=== PATIENT | female | born 1980 | race Caucasian/White ===

== ENCOUNTER 2018-10-08 02:03 | Inpatient (IN) | payer BC ==
[2018-10-08] MEDS ORDERED: fentaNYL 100 MCG/2 ML SDV IVPUSH ONE (02:58)
[2018-10-08] MEDS ORDERED: ePHEDrine 50 MG/ML SDV ONE (03:02)
[2018-10-08] MEDS ORDERED: Ropivacaine 100 ML ONE (03:14)
[2018-10-08] MEDS ORDERED: Oxytocin 10 Units/1 ML SDV ONE ×2 (03:40→03:58)
[2018-10-08] MEDS ORDERED: Oxytocin 10 Units/1 ML SDV IM ONE (03:45)
[2018-10-08] MEDS ORDERED: Lidocaine 1% 50 ML MDV ONE (03:49)
--- NOTE | 2018-10-08 04:12 | ANES ---
DATE OF SERVICE: 10/08/2018 LABOR EPIDURAL NOTE I was called this morning for a lady in active labor requesting a labor epidural. I was at the bedside and interviewed the patient. The patient had no significant history of bleeding or easily bruising. Normal . The platelet count was 191. Risks and benefits were reviewed with the patient and the . The patient has had labor epidurals before. The patient verbalized her understandings of the risks and benefits and wishes to proceed with the labor epidural right now. The patient was then sat at the edge of the bed. Betadine prep x3 to the lumbar region was done. Sterile drape was placed. 1% lidocaine skin wheal and deep was done. A 17-gauge Touhy needle was inserted at approximately the L4-L5 position. Loss of resistance was achieved at approximately 4 cm. Catheter was easily threaded. Touhy needle was withdrawn and the catheter was pulled back to approximately 11 cm and secured. Three mL test dose was done. Catheter was then fully secured. The patient was then laid in the supine position with left uterine displacement. The patient showed no signs of local anesthetic toxicity. She was still able to move her legs easily and heart rate maintained in the low 100s. Shortly after lying the patient down, the patient was feeling like she needs to push and baby was delivered shortly after that. So, I was able to only get 7 mL of 0.2% ropivacaine bolus via the epidural. No drip was started. The patient's blood pressure is maintained throughout. Please refer to the nurse's notes for vital signs. Labor and Delivery will pull the epidural at their convenience. Rohan Degroot CRNA /[id number]
[2018-10-08] MEDS ORDERED: Sodium Chloride 0.9% 10 ML Syringe FLUSH PRN (04:55)
[2018-10-08] MEDS ORDERED: Acetaminophen 325 MG Tab, 50 Tab Bulk Bottle PO PRN (05:09)
[2018-10-08] MEDS ORDERED: Ibuprofen 200 MG Tab, 24 Tab Bulk Bottle PO PRN (05:09)
[2018-10-08] MEDS ORDERED: Witch Hazel Medicated Pads 100/Jar TOP PRN (05:09)
[2018-10-08] MEDS ORDERED: Lanolin 100% Cream 40 GM Tube TOP PRN (05:09)
[2018-10-08] MEDS ORDERED: Benzocaine 20% Top Spray 56 GM Bottle TOP PRN (05:09)
--- NOTE | 2018-10-08 05:31 | PCM.LDHP ---
L&D History of Present Illness - General Date of Service: 10/08/18 Admit Problem/Dx: Patient Status Order with Admit Dx/Problem 10/08/18 04:56 Patient Status [ADT] Routine 10/08/18 05:09 Patient Status [ADT] Routine Admission Diagnosis/Problem Admission Diagnosis/Problem Vaginal delivery Source of Information: Patient History Limitations: Reports: No Limitations - History of Present Illness Pain Score: 10 - Related Data Allergies/Adverse Reactions: Allergies Allergy/AdvReac Type Severity Reaction Status Date / Time No Known Allergies Allergy Verified 01/16/15 21:51 Home Medications: Home Meds Clindamycin Phosphate 1 ml TOP DAILY 01/25/15 [History] Pnv with Ca,No.74/Iron/Fa [ Low Iron Tablet] 1 tab PO DAILY 01/25/15 [ History] Sertraline [Zoloft] 50 mg PO BEDTIME #30 tab 03/18/15 [Rx] Past Medical History Other HEENT History: RRP, Other Genitourinary History: 2-3 weeks ago [employer] History: Reports: : 5 Para: 3 LMP (Approximate): Other (See Below) (PHILL-10/21/2018) - Infectious Disease History Infectious Disease History: Reports: Chicken Pox Social & Family History - Family History Family Medical History: Noncontributory - Tobacco Use Smoking Status *Q: Never Smoker Second Hand Smoke Exposure: No - Caffeine Use Caffeine Use: Reports: None Other Caffeine Use: 1 cup daily - Recreational Drug Use Recreational Drug Use: No H&P Review of Systems - Review of Systems: Review Of Systems: See Below General: Reports: No Symptoms HEENT: Reports: No Symptoms Pulmonary: Reports: No Symptoms Cardiovascular: Reports: No Symptoms Gastrointestinal: Reports: No Symptoms Genitourinary: Reports: No Symptoms Musculoskeletal: Reports: No Symptoms Skin: Reports: No Symptoms Psychiatric: Reports: No Symptoms Neurological: Reports: No Symptoms Hematologic/Lymphatic: Reports: No Symptoms Immunologic: Reports: No Symptoms L&D Exam - Exam Exam: See Below - Vital Signs Vital Signs: Last Vital Signs Temp 36.6 C 10/08/18 02:30 Pulse 74 10/08/18 02:30 Resp 18 10/08/18 02:30 BP 137/69 10/08/18 02:30 Pulse Ox 69 L 10/08/18 02:30 Weight: 92.986 kg - OB Specific Movement: Active Heart Tones: Present Heart Rate (FHR) Variability: Moderate (6-25 bmp) Presentation: Vertex - Patient Data Lab Results Last 24 hrs: Laboratory Results - last 24 hr 10/08/18 10/08/18 10/08/18 Range/Units 02:30 02:31 02:31 WBC (4.5-11.0) K/uL RBC (3.30-5.50) M/uL Hgb (12.0-15.0) g/dL Hct (36.0-48.0) % MCV (80-98) fL MCH (27-31) pg MCHC (32-36) % Plt Count (150-400) K/uL Urine Color Yellow Urine Appearance Slightly cloudy Urine pH 5.0 (4.5-8.0) Ur Specific [place] 1.020 (1.008-1.030) Urine Protein Negative (NEGATIVE) mg/dL Urine Glucose (UA) Normal (NEGATIVE) mg/dL Urine Ketones Negative (NEGATIVE) mg/dL Urine Occult Blood Large (NEGATIVE) Urine Nitrite Negative (NEGATIVE) Urine Bilirubin Negative (NEGATIVE) Urine Urobilinogen Normal (NORMAL) mg/dL Ur Leukocyte Esterase Negative (NEGATIVE) Urine RBC 10-20 H (0-5) Urine WBC 0-5 (0-5) Ur Epithelial Cells Many Amorphous Sediment Not seen Urine Bacteria Few Urine Mucus Not seen Membrane Rupture Positive H (NEGATIVE) Urine Opiates Screen Negative (NEGATIVE) Ur Oxycodone Screen Negative (NEGATIVE) Urine Methadone Screen Negative (NEGATIVE) Ur Propoxyphene Screen Negative (NEGATIVE) Ur Barbiturates Screen Negative (NEGATIVE) Ur Tricyclics Screen Negative (NEGATIVE) Ur Phencyclidine Scrn Negative (NEGATIVE) Ur Amphetamine Screen Negative (NEGATIVE) U Methamphetamines Scrn Negative (NEGATIVE) Urine MDMA Screen Negative (NEGATIVE) U Benzodiazepines Scrn Negative (NEGATIVE) U Cocaine Metab Screen Negative (NEGATIVE) U Marijuana (THC) Screen Negative (NEGATIVE) 10/08/18 Range/Units 03:00 WBC 12.7 H (4.5-11.0) K/uL RBC 4.11 (3.30-5.50) M/uL Hgb 11.4 L (12.0-15.0) g/dL Hct 35.7 L (36.0-48.0) % MCV 87 (80-98) fL MCH 28 (27-31) pg MCHC 32 (32-36) % Plt Count 191 (150-400) K/uL Urine Color Urine Appearance Urine pH (4.5-8.0) Ur Specific [place] (1.008-1.030) Urine Protein (NEGATIVE) mg/dL Urine Glucose (UA) (NEGATIVE) mg/dL Urine Ketones (NEGATIVE) mg/dL Urine Occult Blood (NEGATIVE) Urine Nitrite (NEGATIVE) Urine Bilirubin (NEGATIVE) Urine Urobilinogen (NORMAL) mg/dL Ur Leukocyte Esterase (NEGATIVE) Urine RBC (0-5) Urine WBC (0-5) Ur Epithelial Cells Amorphous Sediment Urine Bacteria Urine Mucus Membrane Rupture (NEGATIVE) Urine Opiates Screen (NEGATIVE) Ur Oxycodone Screen (NEGATIVE) Urine Methadone Screen (NEGATIVE) Ur Propoxyphene Screen (NEGATIVE) Ur Barbiturates Screen (NEGATIVE) Ur Tricyclics Screen (NEGATIVE) Ur Phencyclidine Scrn (NEGATIVE) Ur Amphetamine Screen (NEGATIVE) U Methamphetamines Scrn (NEGATIVE) Urine MDMA Screen (NEGATIVE) U Benzodiazepines Scrn (NEGATIVE) U Cocaine Metab Screen (NEGATIVE) U Marijuana (THC) Screen (NEGATIVE) Result Diagrams: 10/08/18 03:00 - Problem List (1) SNOMED Code(s): 62229714 ICD Code: Z34.90 - ENCNTR FOR SUPRVSN OF NORMAL , UNSP, UNSP TRIMESTER Status: Acute Current Visit: Yes Qualifiers: Weeks of gestation: 38 weeks Qualified Code(s): Z3A.38 - 38 weeks gestation of (2) Labor established SNOMED Code(s): 68558393 ICD Code: PZG0142 - Status: Acute Current Visit: Yes Problem List Initiated/Reviewed/Updated: Yes Orders Last 24hrs: Active Orders 24 hr Category Date Time Status Patient Status [ADT] Routine ADT 10/08/18 04:56 Active Patient Status [ADT] Routine ADT 10/08/18 05:09 Active Ambulate [RC] PER UNIT ROUTINE Care 10/08/18 05:02 Active Antiembolic Devices [RC] .Routine Care 10/08/18 05:04 Active Communication Order [RC] ASDIRECTED Care 10/08/18 04:56 Active Heart Tones [RC] PER UNIT ROUTINE Care 10/08/18 04:56 Active Non Stress Test [RC] Click to Edit Care 10/08/18 04:56 Active May Shower [RC] ASDIRECTED Care 10/08/18 04:55 Active Notify Provider Vital Signs [RC] PRN Care 10/08/18 02:10 Active Notify Provider [RC] PRN Care 10/08/18 04:56 Active PCEA Epidural [RC] ASDIRECTED Care 10/08/18 03:00 Active PCEA Epidural [RC] ASDIRECTED Care 10/08/18 03:00 Active Up ad Dora [RC] ASDIRECTED Care 10/08/18 04:55 Active VTE/DVT Education [RC] Click to Edit Care 10/08/18 05:04 Active Vital Signs [RC] PER UNIT ROUTINE Care 10/08/18 04:56 Active Vital Signs [RC] PFP Care 10/08/18 05:09 Active Regular Diet [DIET] Diet 10/08/18 Breakfast Active CBC WITH AUTO DIFF [HEME] Routine Lab 10/08/18 05:09 Ordered Acetaminophen [Tylenol Bulk Bottle] Med 10/08/18 05:09 Active 325 - 650 mg PO Q4H PRN Benzocaine [Uugj-J-Chziaxz 20% [place]] Med 10/08/18 05:09 Ordered See Dose Instructions TOP Q4H PRN Ibuprofen [Motrin Bulk Bottle] Med 10/08/18 05:09 Ordered 600 mg PO Q6H PRN Lanolin [Lansinoh HPA] Med 10/08/18 05:09 Ordered 40 gm TOP ASDIRECTED PRN Sodium Chloride 0.9% [Saline Flush] Med 10/08/18 04:55 Ordered 10 ml FLUSH ASDIRECTED PRN [place] [Tucks] Med 10/08/18 05:09 Ordered 1 pad TOP ASDIRECTED PRN Assess Lochia [WOMSER] Per Unit Routine Oth 10/08/18 05:09 Ordered Assess Uterine Involution [WOMSER] Per Unit Routine Oth 10/08/18 05:09 Ordered DVT/VTE Prophylaxis Reflex [OM.PC] Routine Oth 10/08/18 05:02 Ordered Epidural Catheter Management [OM.PC] Stat Oth 10/08/18 02:59 Ordered Saline Lock Insert [OM.PC] Routine Oth 10/08/18 04:56 Ordered Resuscitation Status Routine Resus Stat 10/08/18 04:55 Ordered Medication Orders Acetaminophen (Tylenol Bulk Bottle) 325 - 650 mg PO Q4H PRN PRN Reason: Pain Benzocaine (Fcuo-F-Bynioxk 20% [place]) 0 gm TOP Q4H PRN PRN Reason: Perineal Comfort Measure Emollient Ointment (Lansinoh Hpa) 40 gm TOP ASDIRECTED PRN PRN Reason: Sore Nipples Ibuprofen (Motrin Bulk Bottle) 600 mg PO Q6H PRN PRN Reason: Pain Sodium Chloride (Saline Flush) 10 ml FLUSH ASDIRECTED PRN PRN Reason: Keep Vein Open [place] (Tucks) 1 pad TOP ASDIRECTED PRN PRN Reason: Hemorrhoids Assessment/Plan Comment:: 10/08/2018 38 yo here at 38 1/7 gestational weeks came in in active labor SVE-/0 FHTs-category one Contractions regular Plan- Admit to labor and delivery Patient pain control per her request May have an epidural Plan and anticipate a vaginal delivery
--- NOTE | 2018-10-08 05:47 | PCM.DEL ---
L & D Note - General Info Date of Service: 10/08/18 Mother's Due Date: 10/21/18 - Delivery Note Labor: Spontaneous Delivery Outcome: Livebirth Infant Delivery Method: Spontaneous Vaginal Delivery-Single Infant Delivery Mode: Spontaneous Presentation: Vertex Nuchal Cord: None Amniotic Fluid Description: Clear Episiotomy Type: None Laceration: None Placenta: Intact, Spontaneous Cord: 3 Vessels Estimated Blood Loss: 200 Resuscitation Needed: No [place]: Bulb Syringe, Stimulated, Warmed, [place] Used Provider: Julia Ascencio Score 1 min: 5 Score 5 min: 8 Second Stage Interventions: Reports: Other (see below) (precipitous delivery) Delivery Comments (Free Text/Narrative):: 10/08/2018 38 yo delivered a viable male at 0335 on 10/08/2018 at 38 1/7 gestational weeks over an intact perineum in vertex position precipitously. Nurse Campbell Vo delivered the as provider walked into the room, Nurse stated there had been no nuchal cord. Cord was then double clamped and cut so infant could be brought to warmer for initial assessment. was slightly stunned, was dried, stimulated, warmed, bulb suctioned, and blow by was given as began to come around and pink in color and cry vigorously. APGARS-5/8 , weight-7lbs 7oz, length-20 inches. Mother was slightly anxious and had a hard time relaxing, IM pitocin was given since IV site was no long functioning. Bed was then broken down to assist with placenta. Patient then relaxed and placenta expressed spontaneously and intact. Three vessel cord noted, EBL- 200ml. No lacerations noted of vagina, perineum, rectum, and/or cervix. now stable and being held by mother of in labor and delivery room. 1st [id number] 2nd [id number] 3rd [id number] - General Info Date of Service: 10/08/18 Functional Status: Reports: Pain Controlled - Review of Systems General: Reports: No Symptoms HEENT: Reports: No Symptoms Pulmonary: Reports: No Symptoms Cardiovascular: Reports: No Symptoms Gastrointestinal: Reports: No Symptoms Genitourinary: Reports: No Symptoms Musculoskeletal: Reports: No Symptoms Skin: Reports: No Symptoms Neurological: Reports: No Symptoms Psychiatric: Reports: No Symptoms - Patient Data Vitals - Most Recent: Last Vital Signs Temp 36.6 C 10/08/18 02:30 Pulse 74 10/08/18 02:30 Resp 18 10/08/18 02:30 BP 137/69 10/08/18 02:30 Pulse Ox 69 L 10/08/18 02:30 Weight - Most Recent: 92.986 kg Lab Results Last 24 Hours: Laboratory Results - last 24 hr 10/08/18 10/08/18 10/08/18 Range/Units 02:30 02:31 02:31 WBC (4.5-11.0) K/uL RBC (3.30-5.50) M/uL Hgb (12.0-15.0) g/dL Hct (36.0-48.0) % MCV (80-98) fL MCH (27-31) pg MCHC (32-36) % Plt Count (150-400) K/uL Urine Color Yellow Urine Appearance Slightly cloudy Urine pH 5.0 (4.5-8.0) Ur Specific [place] 1.020 (1.008-1.030) Urine Protein Negative (NEGATIVE) mg/dL Urine Glucose (UA) Normal (NEGATIVE) mg/dL Urine Ketones Negative (NEGATIVE) mg/dL Urine Occult Blood Large (NEGATIVE) Urine Nitrite Negative (NEGATIVE) Urine Bilirubin Negative (NEGATIVE) Urine Urobilinogen Normal (NORMAL) mg/dL Ur Leukocyte Esterase Negative (NEGATIVE) Urine RBC 10-20 H (0-5) Urine WBC 0-5 (0-5) Ur Epithelial Cells Many Amorphous Sediment Not seen Urine Bacteria Few Urine Mucus Not seen Membrane Rupture Positive H (NEGATIVE) Urine Opiates Screen Negative (NEGATIVE) Ur Oxycodone Screen Negative (NEGATIVE) Urine Methadone Screen Negative (NEGATIVE) Ur Propoxyphene Screen Negative (NEGATIVE) Ur Barbiturates Screen Negative (NEGATIVE) Ur Tricyclics Screen Negative (NEGATIVE) Ur Phencyclidine Scrn Negative (NEGATIVE) Ur Amphetamine Screen Negative (NEGATIVE) U Methamphetamines Scrn Negative (NEGATIVE) Urine MDMA Screen Negative (NEGATIVE) U Benzodiazepines Scrn Negative (NEGATIVE) U Cocaine Metab Screen Negative (NEGATIVE) U Marijuana (THC) Screen Negative (NEGATIVE) 10/08/18 Range/Units 03:00 WBC 12.7 H (4.5-11.0) K/uL RBC 4.11 (3.30-5.50) M/uL Hgb 11.4 L (12.0-15.0) g/dL Hct 35.7 L (36.0-48.0) % MCV 87 (80-98) fL MCH 28 (27-31) pg MCHC 32 (32-36) % Plt Count 191 (150-400) K/uL Urine Color Urine Appearance Urine pH (4.5-8.0) Ur Specific [place] (1.008-1.030) Urine Protein (NEGATIVE) mg/dL Urine Glucose (UA) (NEGATIVE) mg/dL Urine Ketones (NEGATIVE) mg/dL Urine Occult Blood (NEGATIVE) Urine Nitrite (NEGATIVE) Urine Bilirubin (NEGATIVE) Urine Urobilinogen (NORMAL) mg/dL Ur Leukocyte Esterase (NEGATIVE) Urine RBC (0-5) Urine WBC (0-5) Ur Epithelial Cells Amorphous Sediment Urine Bacteria Urine Mucus Membrane Rupture (NEGATIVE) Urine Opiates Screen (NEGATIVE) Ur Oxycodone Screen (NEGATIVE) Urine Methadone Screen (NEGATIVE) Ur Propoxyphene Screen (NEGATIVE) Ur Barbiturates Screen (NEGATIVE) Ur Tricyclics Screen (NEGATIVE) Ur Phencyclidine Scrn (NEGATIVE) Ur Amphetamine Screen (NEGATIVE) U Methamphetamines Scrn (NEGATIVE) Urine MDMA Screen (NEGATIVE) U Benzodiazepines Scrn (NEGATIVE) U Cocaine Metab Screen (NEGATIVE) U Marijuana (THC) Screen (NEGATIVE) Med Orders - Current: Current Medications Acetaminophen (Tylenol Bulk Bottle) 325 - 650 mg PO Q4H PRN PRN Reason: Pain Benzocaine (Hdns-U-Cyeqswz 20% [place]) 0 gm TOP Q4H PRN PRN Reason: Perineal Comfort Measure Emollient Ointment (Lansinoh Hpa) 40 gm TOP ASDIRECTED PRN PRN Reason: Sore Nipples Ibuprofen (Motrin Bulk Bottle) 600 mg PO Q6H PRN PRN Reason: Pain Sodium Chloride (Saline Flush) 10 ml FLUSH ASDIRECTED PRN PRN Reason: Keep Vein Open [place] (Tucks) 1 pad TOP ASDIRECTED PRN PRN Reason: Hemorrhoids Discontinued Medications Ephedrine Sulfate (Ephedrine Sulfate) Confirm Administered Dose 50 mg .ROUTE .STK-MED ONE Stop: 10/08/18 03:03 Fentanyl (Sublimaze) 100 mcg IVPUSH ONETIME ONE Stop: 10/08/18 02:59 Last Admin: 10/08/18 03:08 Dose: 100 mcg Ropivacaine (Naropin 0.2%) Confirm Administered Dose 100 mls @ as directed .ROUTE .STK-MED ONE Stop: 10/08/18 03:15 Lidocaine HCl (Xylocaine 1%) Confirm Administered Dose 50 ml .ROUTE .STK-MED ONE Stop: 10/08/18 03:50 Oxytocin (Pitocin) Confirm Administered Dose 10 unit .ROUTE .STK-MED ONE Stop: 10/08/18 03:41 Oxytocin (Pitocin) Confirm Administered Dose 10 unit .ROUTE .STK-MED ONE Stop: 10/08/18 03:59 - Exam General: Alert, Oriented HEENT: Pupils Equal, Pupils Reactive, EOMI, Mucous Membr. Moist/[place]age Neck: Supple Lungs: Clear to Auscultation, Normal Respiratory Effort Cardiovascular: Regular Rate, Regular Rhythm GI/Abdominal Exam: Normal Bowel Sounds, Soft, Non-Tender, No Organomegaly, No Distention, No Abnormal Bruit, No Mass, Pelvis Stable (Female) Exam: Normal External Exam, Normal Speculum Exam, Normal Bimanual Exam, Enlarged Uterus, Vaginal Bleeding Back Exam: Normal Inspection, Full Range of Motion Extremities: Normal Inspection, Normal Range of Motion, Non-Tender, No Pedal Edema, Normal Capillary Refill Skin: Warm, Dry, Intact Neurological: No New Focal Deficit Psy/Mental Status: Alert, Normal Affect, Normal Mood - Problem List & Annotations (1) SNOMED Code(s): 23815206 Code(s): Z34.90 - ENCNTR FOR SUPRVSN OF NORMAL , UNSP, UNSP TRIMESTER Status: Acute Current Visit: Yes Qualifiers: Weeks of gestation: 38 weeks Qualified Code(s): Z3A.38 - 38 weeks gestation of (2) Labor established SNOMED Code(s): 23374497 Code(s): UTC3224 - Status: Acute Current Visit: Yes (3) Normal vaginal delivery SNOMED Code(s): 64873182 Code(s): O80 - ENCOUNTER FOR FULL-TERM UNCOMPLICATED DELIVERY Status: Acute Current Visit: Yes (4) Precipitous delivery SNOMED Code(s): 500456792, 123454878 Code(s): O62.3 - PRECIPITATE LABOR Status: Acute Current Visit: Yes - Problem List Review Problem List Initiated/Reviewed/Updated: Yes - My Orders Last 24 Hours: My Active Orders 10/08/18 02:10 Notify Provider Vital Signs [RC] PRN 10/08/18 02:59 Epidural Catheter Management [OM.PC] Stat 10/08/18 03:00 PCEA Epidural [RC] ASDIRECTED PCEA Epidural [RC] ASDIRECTED 10/08/18 04:55 May Shower [RC] ASDIRECTED Up ad Dora [RC] ASDIRECTED Sodium Chloride 0.9% [Saline Flush] 10 ml FLUSH ASDIRECTED PRN Resuscitation Status Routine 10/08/18 04:56 Patient Status [ADT] Routine Communication Order [RC] ASDIRECTED Heart Tones [RC] PER UNIT ROUTINE Non Stress Test [RC] Click to Edit Notify Provider [RC] PRN Vital Signs [RC] PER UNIT ROUTINE Saline Lock Insert [OM.PC] Routine 10/08/18 05:02 Ambulate [RC] PER UNIT ROUTINE DVT/VTE Prophylaxis Reflex [OM.PC] Routine 10/08/18 05:04 Antiembolic Devices [RC] .Routine VTE/DVT Education [RC] Click to Edit 10/08/18 05:09 Patient Status [ADT] Routine Vital Signs [RC] PFP CBC WITH AUTO DIFF [HEME] Routine Acetaminophen [Tylenol Bulk Bottle] 325 - 650 mg PO Q4H PRN Benzocaine [Xrxv-S-Xjaulmc 20% [place]] See Dose Instructions TOP Q4H PRN Ibuprofen [Motrin Bulk Bottle] 600 mg PO Q6H PRN Lanolin [Lansinoh HPA] 40 gm TOP ASDIRECTED PRN [place] [Tucks] 1 pad TOP ASDIRECTED PRN Assess Lochia [WOMSER] Per Unit Routine Assess Uterine Involution [WOMSER] Per Unit Routine 10/08/18 Breakfast Regular Diet [DIET] - Assessment Assessment:: 10/08/2018 38 yo G5 now P3 delivered without complications Labs-O positive, HIV neg, Hep B neg, Hep C neg, RPR nonreactive, GBS negative, Rubella Immune - Plan Plan:: 10/08/2018 38 yo here at 38 1/7 gestational weeks came in in active labor SVE-3/80/0 FHTs-category one Contractions regular Plan- Admit to labor and delivery Patient pain control per her request May have an epidural Plan and anticipate a vaginal delivery 10/08/2018 Routine cares Encourage and support
[2018-10-08] MEDS: Docusate Sodium 100 MG Cap PO PRN (21:27)
[2018-10-09] MEDS: Docusate Sodium 100 MG Cap PO PRN ×2 (08:55→22:43)
--- NOTE | 2018-10-09 12:08 | PCM.PNPP ---
- General Info Date of Service: 10/09/18 Functional Status: Reports: Pain Controlled - Review of Systems General: Reports: No Symptoms HEENT: Reports: No Symptoms Pulmonary: Reports: No Symptoms Cardiovascular: Reports: No Symptoms Gastrointestinal: Reports: No Symptoms Genitourinary: Reports: No Symptoms Musculoskeletal: Reports: No Symptoms Skin: Reports: No Symptoms Neurological: Reports: No Symptoms Psychiatric: Reports: No Symptoms - General Info Date of Service: 10/09/18 - Patient Data Vital Signs - Most Recent: Last Vital Signs Temp 36.6 C 10/09/18 08:41 Pulse 81 10/09/18 08:41 Resp 18 10/09/18 08:41 BP 122/68 10/09/18 08:41 Pulse Ox 97 10/09/18 08:41 Weight - Most Recent: 92.986 kg I&O - Last 24 Hours: Intake & Output 10/08/18 10/09/18 10/09/18 22:59 06:59 14:59 Intake Total 500 700 Balance 500 700 Lab Results - Last 24 Hours: Laboratory Results - last 24 hr 10/09/18 Range/Units 05:15 WBC 13.0 H (4.5-11.0) K/uL RBC 3.75 (3.30-5.50) M/uL Hgb 10.2 L (12.0-15.0) g/dL Hct 32.7 L (36.0-48.0) % MCV 87 (80-98) fL MCH 27 (27-31) pg MCHC 31 L (32-36) % Plt Count 189 (150-400) K/uL Neut % (Auto) 67 H (36-66) % Lymph % (Auto) 24 (24-44) % Gillespie % (Auto) 8 H (2-6) % Eos % (Auto) 1 L (2-4) % Baso % (Auto) 0 (0-1) % Med Orders - Current: Current Medications Acetaminophen (Tylenol Bulk Bottle) 325 - 650 mg PO Q4H PRN PRN Reason: Pain Last Admin: 10/08/18 06:07 Dose: 650 mg Benzocaine (Mesu-W-Ijzrsny 20% [place]) 0 gm TOP Q4H PRN PRN Reason: Perineal Comfort Measure Last Admin: 10/08/18 06:06 Dose: 1 applic Docusate Sodium (Colace) 100 mg PO BID PRN PRN Reason: Constipation Last Admin: 10/09/18 08:55 Dose: 100 mg Emollient Ointment (Lansinoh Hpa) 40 gm TOP ASDIRECTED PRN PRN Reason: Sore Nipples Last Admin: 10/08/18 06:07 Dose: 40 gm Ibuprofen (Motrin Bulk Bottle) 600 mg PO Q6H PRN PRN Reason: Pain Last Admin: 10/08/18 06:07 Dose: 600 mg Sodium Chloride (Saline Flush) 10 ml FLUSH ASDIRECTED PRN PRN Reason: Keep Vein Open Witch Lucille (Tucks) 1 pad TOP ASDIRECTED PRN PRN Reason: Hemorrhoids Last Admin: 10/08/18 06:07 Dose: 1 applic Discontinued Medications Ephedrine Sulfate (Ephedrine Sulfate) Confirm Administered Dose 50 mg .ROUTE .STK-MED ONE Stop: 10/08/18 03:03 Last Admin: 10/08/18 06:06 Dose: Not Given Fentanyl (Sublimaze) 100 mcg IVPUSH ONETIME ONE Stop: 10/08/18 02:59 Last Admin: 10/08/18 03:08 Dose: 100 mcg Ropivacaine (Naropin 0.2%) Confirm Administered Dose 100 mls @ as directed .ROUTE .STK-MED ONE Stop: 10/08/18 03:15 Lidocaine HCl (Xylocaine 1%) Confirm Administered Dose 50 ml .ROUTE .STK-MED ONE Stop: 10/08/18 03:50 Last Admin: 10/08/18 06:06 Dose: Not Given Oxytocin (Pitocin) Confirm Administered Dose 10 unit .ROUTE .STK-MED ONE Stop: 10/08/18 03:41 Last Admin: 10/08/18 06:06 Dose: Not Given Oxytocin (Pitocin) Confirm Administered Dose 10 unit .ROUTE .STK-MED ONE Stop: 10/08/18 03:59 Last Admin: 10/08/18 06:06 Dose: Not Given Oxytocin (Pitocin) 10 unit IM ONETIME ONE Stop: 10/08/18 03:46 Last Admin: 10/08/18 03:42 Dose: 10 unit - Interaction Disposition, : [place] at Bedside Infant Interaction: Holding Feeding: Breastfed ; Nursed Well Support Person: - Recovery Exam Fundal Tone: Firm Fundal Level: At Umbilicus Fundal Placement: Midline Lochia Amount: Moderate Lochia Color: Rubra/Red Perineum Description: Intact, Minimal Bruising/Swelling Episiotomy/Laceration: None Bladder Status: Voiding Urinary Elimination: Voided - Exam General: Alert, Oriented, Cooperative HEENT: Pupils Equal Neck: Supple Lungs: Clear to Auscultation, Normal Respiratory Effort Cardiovascular: Regular Rate, Regular Rhythm GI/Abdominal Exam: Normal Bowel Sounds, Soft, Non-Tender, No Organomegaly, No Distention, No Abnormal Bruit, No Mass, Pelvis Stable Extremities: Normal Inspection, Normal Range of Motion, Non-Tender, No Pedal Edema, Normal Capillary Refill Skin: Warm, Dry, Intact Neurological: No New Focal Deficit Psy/Mental Status: Alert, Normal Affect, Normal Mood - Problem List & Annotations (1) SNOMED Code(s): 52435425 Code(s): Z34.90 - ENCNTR FOR SUPRVSN OF NORMAL , UNSP, UNSP TRIMESTER Status: Acute Current Visit: Yes Qualifiers: Weeks of gestation: 38 weeks Qualified Code(s): Z3A.38 - 38 weeks gestation of (2) Labor established SNOMED Code(s): 15478985 Code(s): RFY4090 - Status: Acute Current Visit: Yes (3) Normal vaginal delivery SNOMED Code(s): 34823922 Code(s): O80 - ENCOUNTER FOR FULL-TERM UNCOMPLICATED DELIVERY Status: Acute Current Visit: Yes (4) Precipitous delivery SNOMED Code(s): 084464446, 470125786 Code(s): O62.3 - PRECIPITATE LABOR Status: Acute Current Visit: Yes - Problem List Review Problem List Initiated/Reviewed/Updated: Yes - My Orders Last 24 Hours: My Active Orders 10/08/18 21:08 Docusate Sodium [Colace] 100 mg PO BID PRN - Assessment Assessment:: 10/08/2018 38 yo G5 now P3 delivered without complications Labs-O positive, HIV neg, Hep B neg, Hep C neg, RPR nonreactive, GBS negative, Rubella Immune 10/09/2018 Normal Healthy Day One well History of anxiety and depression Precipitous delivery Bonding well - Plan Plan:: 10/08/2018 38 yo here at 38 1/7 gestational weeks came in in active labor SVE-80/0 FHTs-category one Contractions regular Plan- Admit to labor and delivery Patient pain control per her request May have an epidural Plan and anticipate a vaginal delivery 10/08/2018 Routine cares Encourage and support 10/09/2018 Continue routine cares Continue to encourage and support Patient requests to stay till tomorrow-plan discharge tomorrow
--- NOTE | 2018-10-10 08:48 | PCM.PNPP ---
- General Info Date of Service: 10/10/18 Functional Status: Reports: Pain Controlled - Review of Systems General: Reports: No Symptoms HEENT: Reports: No Symptoms Pulmonary: Reports: No Symptoms Cardiovascular: Reports: No Symptoms Gastrointestinal: Reports: No Symptoms Genitourinary: Reports: No Symptoms Musculoskeletal: Reports: No Symptoms Skin: Reports: No Symptoms Neurological: Reports: No Symptoms Psychiatric: Reports: No Symptoms - General Info Date of Service: 10/10/18 - Patient Data Vital Signs - Most Recent: Last Vital Signs Temp 36.0 C 10/10/18 02:15 Pulse 78 10/10/18 02:15 Resp 16 10/10/18 02:15 BP 117/67 10/10/18 02:15 Pulse Ox 98 10/10/18 02:15 Weight - Most Recent: 92.986 kg I&O - Last 24 Hours: Intake & Output 10/09/18 10/10/18 10/10/18 22:59 06:59 14:59 Intake Total 1000 Balance 1000 Med Orders - Current: Current Medications Acetaminophen (Tylenol Bulk Bottle) 325 - 650 mg PO Q4H PRN PRN Reason: Pain Last Admin: 10/08/18 06:07 Dose: 650 mg Benzocaine (Nvdd-W-Oaoqihj 20% [place]) 0 gm TOP Q4H PRN PRN Reason: Perineal Comfort Measure Last Admin: 10/08/18 06:06 Dose: 1 applic Docusate Sodium (Colace) 100 mg PO BID PRN PRN Reason: Constipation Last Admin: 10/09/18 22:43 Dose: 100 mg Emollient Ointment (Lansinoh Hpa) 40 gm TOP ASDIRECTED PRN PRN Reason: Sore Nipples Last Admin: 10/08/18 06:07 Dose: 40 gm Ibuprofen (Motrin Bulk Bottle) 600 mg PO Q6H PRN PRN Reason: Pain Last Admin: 10/08/18 06:07 Dose: 600 mg Sodium Chloride (Saline Flush) 10 ml FLUSH ASDIRECTED PRN PRN Reason: Keep Vein Open Witch Lucille (Tucks) 1 pad TOP ASDIRECTED PRN PRN Reason: Hemorrhoids Last Admin: 10/08/18 06:07 Dose: 1 applic Discontinued Medications Ephedrine Sulfate (Ephedrine Sulfate) Confirm Administered Dose 50 mg .ROUTE .STK-MED ONE Stop: 10/08/18 03:03 Last Admin: 10/08/18 06:06 Dose: Not Given Fentanyl (Sublimaze) 100 mcg IVPUSH ONETIME ONE Stop: 10/08/18 02:59 Last Admin: 10/08/18 03:08 Dose: 100 mcg Ropivacaine (Naropin 0.2%) Confirm Administered Dose 100 mls @ as directed .ROUTE .STK-MED ONE Stop: 10/08/18 03:15 Lidocaine HCl (Xylocaine 1%) Confirm Administered Dose 50 ml .ROUTE .STK-MED ONE Stop: 10/08/18 03:50 Last Admin: 10/08/18 06:06 Dose: Not Given Oxytocin (Pitocin) Confirm Administered Dose 10 unit .ROUTE .STK-MED ONE Stop: 10/08/18 03:41 Last Admin: 10/08/18 06:06 Dose: Not Given Oxytocin (Pitocin) Confirm Administered Dose 10 unit .ROUTE .STK-MED ONE Stop: 10/08/18 03:59 Last Admin: 10/08/18 06:06 Dose: Not Given Oxytocin (Pitocin) 10 unit IM ONETIME ONE Stop: 10/08/18 03:46 Last Admin: 10/08/18 03:42 Dose: 10 unit - Infant Interaction Infant Disposition, : [place] at Bedside Infant Interaction: Holding Feeding: Breastfed ; Nursed Well Support Person: - Recovery Exam Fundal Tone: Firm Fundal Level: At Umbilicus Fundal Placement: Midline Lochia Amount: Small Lochia Color: Rubra/Red Perineum Description: Intact, Minimal Bruising/Swelling Episiotomy/Laceration: None Bladder Status: Voiding Urinary Elimination: Voided - Exam General: Alert, Oriented HEENT: Pupils Equal Neck: Supple Lungs: Clear to Auscultation, Normal Respiratory Effort Cardiovascular: Regular Rate, Regular Rhythm GI/Abdominal Exam: Normal Bowel Sounds, Soft, Non-Tender, No Organomegaly, No Distention, No Abnormal Bruit, No Mass, Pelvis Stable Extremities: Normal Inspection, Normal Range of Motion, Non-Tender, No Pedal Edema, Normal Capillary Refill Skin: Warm, Dry, Intact Neurological: No New Focal Deficit Psy/Mental Status: Alert, Normal Affect, Normal Mood - Problem List & Annotations (1) SNOMED Code(s): 29418676 Code(s): Z34.90 - ENCNTR FOR SUPRVSN OF NORMAL , UNSP, UNSP TRIMESTER Status: Acute Current Visit: Yes Qualifiers: Weeks of gestation: 38 weeks Qualified Code(s): Z3A.38 - 38 weeks gestation of (2) Labor established SNOMED Code(s): 81956494 Code(s): RYF9553 - Status: Acute Current Visit: Yes (3) Normal vaginal delivery SNOMED Code(s): 12861856 Code(s): O80 - ENCOUNTER FOR FULL-TERM UNCOMPLICATED DELIVERY Status: Acute Current Visit: Yes (4) Precipitous delivery SNOMED Code(s): 651700141, 389324929 Code(s): O62.3 - PRECIPITATE LABOR Status: Acute Current Visit: Yes (5) History of depression SNOMED Code(s): 865302167 Code(s): Z87.59 - PERSONAL HISTORY OF COMP OF PREG, CHLDBRTH AND THE PUERP; Z86.59 - PERSONAL HISTORY OF OTHER MENTAL AND BEHAVIORAL DISORDERS Status: Acute Current Visit: No - Problem List Review Problem List Initiated/Reviewed/Updated: Yes - Assessment Assessment:: 10/08/2018 38 yo G5 now P3 delivered without complications Labs-O positive, HIV neg, Hep B neg, Hep C neg, RPR nonreactive, GBS negative, Rubella Immune 10/09/2018 Normal Healthy Day One well History of anxiety and depression Precipitous delivery Bonding well 10/10/2018 Normal Healthy Day Two well History of anxiety and depression Precipitous delivery Bonding well Discharge home today - Plan Plan:: 10/08/2018 38 yo here at 38 1/7 gestational weeks came in in active labor SVE-80/0 FHTs-category one Contractions regular Plan- Admit to labor and delivery Patient pain control per her request May have an epidural Plan and anticipate a vaginal delivery 10/08/2018 Routine cares Encourage and support 10/09/2018 Continue routine cares Continue to encourage and support Patient requests to stay till tomorrow-plan discharge tomorrow 10/10/2018 Continue routine cares Continue to encourage and support Discharge home today See Angela in clinic for six weeks for visit
[2018-10-10] MEDS: Docusate Sodium 100 MG Cap PO PRN (09:32)
[2018-10-10 09:46] VITALS: BP 122/69
== END 2018-10-10 14:00 | disposition home or self-care (01) | DRG 560 ==
LOC: JP.OBCHECK 02:03 → JP.OB 02:04 → OBSVTOIN 03:35 → JP.OB 03:35 → JP.MS 11:41
PROVIDERS: ADMIT Advanced Practice Midwife; ATTEND Nurse Practitioner Family
PROC: 10E0XZZ Delivery of Products of Conception, External Approach (ICD-10-PCS; principal; 2018-10-08)
PROC: 00HU33Z Insertion of Infusion Device into Spinal Canal, Percutaneous Approach (ICD-10-PCS; 2018-10-08)
DX: O62.3 Precipitate labor (principal); Z3A.38 38 weeks gestation of pregnancy; Z37.0 Single live birth; Z87.59 Personal history of other complications of pregnancy, childbirth and the puerperium; Z86.59 Personal history of other mental and behavioral disorders
CPT/HCPCS: 36415; 59409; 80305-QW; 81001; 84112; 85025; 85027; A9270-GY; J2590; J2795; J3010

== ENCOUNTER 2018-12-26 08:28 | Emergency (ER) | payer BC ==
[2018-12-26 09:12] VITALS: BP 142/86
--- NOTE | 2018-12-26 10:07 | EDM.PDOC ---
ED HPI GENERAL MEDICAL PROBLEM - General Chief Complaint: Back Pain or Injury Stated Complaint: BACK PAIN Time Seen by Provider: 12/26/18 09:25 Source of Information: Reports: Patient History Limitations: Reports: No Limitations - History of Present Illness INITIAL COMMENTS - FREE TEXT/NARRATIVE: This patient says that for the past several days she's had urinary frequency disc going small amounts and so forth. She called her PCP 3 days ago and was put on Bactrim. She's been taking it since then but it has not been helping. Last night at bedtime she voided about 6 times but still continued to have urgency. At 4:30 this morning she began having pain in her right side. She said it was cramping in said it sort of felt like labor. She took some ibuprofen and that helped her abdominal her low abdominal pain but not the back pain. She's also had a little bit of diarrhea. She denies any history of kidney stones. There's been no fever. 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 ED EXAM,LOWER BACK PAIN/INJURY - Physical Exam Exam: See Below Exam Limited By: No Limitations General Appearance: Alert, WD/WN, No Apparent Distress Respiratory/Chest: No Respiratory Distress GI/Abdominal: No Distention Back Exam: No: CVA Tenderness (R), CVA Tenderness (L) Extremities: Normal Inspection Neurological: Alert Skin Exam: Warm, Dry Course - Vital Signs Last Recorded V/S: Last Vital Signs Temp 35.6 C 12/26/18 08:56 Pulse 58 L 12/26/18 08:56 Resp 20 12/26/18 08:56 BP 142/86 H 12/26/18 08:56 Pulse Ox 98 12/26/18 08:56 - Orders/Labs/Meds Labs: Laboratory Tests 12/26/18 Range/Units 09:00 Urine Color Yellow Urine Appearance Slightly cloudy Urine pH 6.0 (4.5-8.0) Ur Specific [place] 1.020 (1.008-1.030) Urine Protein Negative (NEGATIVE) mg/dL Urine Glucose (UA) Normal (NEGATIVE) mg/dL Urine Ketones Negative (NEGATIVE) mg/dL Urine Occult Blood Large (NEGATIVE) Urine Nitrite Negative (NEGATIVE) Urine Bilirubin Negative (NEGATIVE) Urine Urobilinogen Normal (NORMAL) mg/dL Ur Leukocyte Esterase Trace (NEGATIVE) Urine RBC 10-20 H (0-5) Urine WBC 0-5 (0-5) Ur Epithelial Cells Moderate Amorphous Sediment Not seen Urine Bacteria Moderate Urine Mucus Few - Re-Assessments/Exams Free Text/Narrative Re-Assessment/Exam: 12/26/18 10:07 She was only able to produce a small amount of urine not enough to centrifuge so the exam is done on an unspun specimen. The dip shows large occult blood trace of leukocytes microtia shows 10-20 rbc's 0-5 WBCs but moderate epithelials and moderate bacteria. The amount of RBCs in the urine suggests possibly a kidney stone. On exam though she really doesn't look like a patient with kidney stones. Her history sounds like cystitis which may be starting to go into a pyelonephritis. I explained to her that if she had a kidney stone we would treat with pain medications and sometimes even add in an antibiotic and basically that's what were doing although I'm treating her as if she has cystitis and possibly early pyelonephritis. Supper on Cipro 500 twice a day for 7 days. Celexa have enough medicines for 10 days if needed also Narco 5/325 #12 tablets to drink a lot of water and if she's not feeling quite a bit better in 2 days then she needs to follow-up at that time someone might consider doing it imaging for a kidney stone but that's not indicated right now. Departure - Departure Time of Disposition: 10:05 Disposition: Home, Self-Care 01 Condition: Fair Clinical Impression: Acute cystitis with hematuria - Discharge Information Referrals: Kathie Wei PA [Primary Care Provider] - Forms: ED Department Discharge Additional Instructions: Most likely you have a bladder infection that is beginning to get up into your kidney. So take Cipro 500 mg twice daily for 7 days. For just a plain bladder infection 5 days of antibiotics is the norm. If you are slowly improve he can take it longer. If you're not better in 48 hours then be sure to follow-up with your Dr. or health care provider. Imaging for a kidney stone could be done then if needed. The urine was also sent for a culture and that should be ready by then. Be sure to drink a lot of water. Note that the treatment being used for this infection is the same thing that we would give you for a kidney stone. You can continue taking ibuprofen as needed. The oh already has some Tylenol and it so don't take extra Tylenol. The Narco also can cause sedation and impair driving.
== END 2018-12-26 10:27 | disposition home or self-care (01) ==
LOC: JP.ED 08:28
DX: N30.01 Acute cystitis with hematuria (principal); F32.9 Major depressive disorder, single episode, unspecified; Z79.899 Other long term (current) drug therapy
CPT/HCPCS: 81001; 87086; 99283

== ENCOUNTER 2020-12-17 07:01 | Inpatient (IN) | payer BC ==
[2020-12-17] MEDS ORDERED: Sodium Chloride 0.9% 10 ML Syringe FLUSH PRN (07:22)
--- NOTE | 2020-12-17 07:30 | PCM.LDHP ---
L&D History of Present Illness - General Date of Service: 12/17/20 Admit Problem/Dx: Patient Status Order with Admit Dx/Problem 12/17/20 07:22 Patient Status [ADT] Routine Admission Diagnosis/Problem Admission Diagnosis/Problem Source of Information: Patient History Limitations: Reports: No Limitations - History of Present Illness Introduction:: 40 year old 38 2/7 weeks. Presents with labor. contractions during the night. )515 increase dnad became uncomfortable. GBS neg HIV neg ABo O pos Covid pending Timing/Duration: Reports: minutes: (2-3) Location, : Reports: Abdomen Quality: Reports: Pressure Severity: Moderate Improves with: Reports: None Worsens with: Reports: None - Related Data Allergies/Adverse Reactions: Allergies Allergy/AdvReac Type Severity Reaction Status Date / Time No Known Allergies Allergy Verified 12/26/18 08:55 Home Medications: Home Meds Clindamycin Phosphate 1 ml TOP DAILY 01/25/15 [History] Vit,Sumeet 74/Iron/Folic [ Low Iron Tablet] 1 tab PO DAILY 01/25/15 [History] Sertraline [Zoloft] 50 mg PO BEDTIME #30 tab 03/18/15 [Rx] Past Medical History Other HEENT History: RRP, Other 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 LMP (Approximate): (PHILL 12/29/20) Psychiatric History: Reports: Depression - Infectious Disease History Infectious Disease History: Reports: Chicken Pox Social & Family History - Family History Family Medical History: No Pertinent Family History - Caffeine Use Caffeine Use: Reports: None Other Caffeine Use: 1 cup daily H&P Review of Systems - Review of Systems: Review Of Systems: See Below General: Reports: No Symptoms HEENT: Reports: No Symptoms Pulmonary: Reports: No Symptoms Cardiovascular: Reports: No Symptoms Gastrointestinal: Reports: No Symptoms Genitourinary: Reports: No Symptoms Musculoskeletal: Reports: No Symptoms Skin: Reports: No Symptoms Psychiatric: Reports: No Symptoms Neurological: Reports: No Symptoms Hematologic/Lymphatic: Reports: No Symptoms Immunologic: Reports: No Symptoms L&D Exam - Exam Exam: See Below - OB Specific Contraction Intensity: Moderate to Strong Movement: Active Heart Tones: Present Heart Rate (FHR) Variability: Moderate (6-25 bmp) Presentation: Vertex Estimated Weight: 7 pounds - Dinero Score Dinero Score Cervix Position: Midposition Dinero Score Consistency: Soft Dinero Score Effacement: 51-70% Dinero Score Dilation: > 5 cm Dinero Score Infant's Station: -1 ,0 Dinero Score Total: 10 - Exam General: Alert, Oriented HEENT: PERRLA Neck: Supple Lungs: Clear to Auscultation, Normal Respiratory Effort Cardiovascular: Regular Rate, Regular Rhythm GI/Abdominal Exam: Normal Bowel Sounds Rectal Exam: Normal Exam Genitourinary: Normal external exam Back Exam: Normal Inspection, Full Range of Motion Extremities: Normal Inspection, No Pedal Edema Skin: Warm Neurological: Cranial Nerves Intact Psychiatric: Alert - Problem List (1) Active labor at term SNOMED Code(s): 51330875 ICD Code: [id number] - Status: Acute Current Visit: Yes (2) GDM, class A2 SNOMED Code(s): 86765309 ICD Code: O24.419 - GESTATIONAL DIABETES MELLITUS IN , UNSP CONTROL Status: Acute Current Visit: Yes Problem List Initiated/Reviewed/Updated: Yes Orders Last 24hrs: Active Orders 24 hr Category Date Time Status Patient Status [ADT] Routine ADT 12/17/20 07:22 Ordered Communication Order [RC] ASDIRECTED Care 12/17/20 07:22 Ordered Heart Tones [RC] PER UNIT ROUTINE Care 12/17/20 07:22 Ordered Non Stress Test [RC] Click to Edit Care 12/17/20 07:22 Ordered Notify Provider Vital Signs [RC] PRN Care 12/17/20 07:22 Ordered Notify Provider [RC] PRN Care 12/17/20 07:22 Ordered Vital Signs [RC] PER UNIT ROUTINE Care 12/17/20 07:22 Ordered CBC W/O DIFF,HEMOGRAM [HEME] Routine Lab 12/17/20 07:16 Ordered CORONAVIRUS COVID-19, ANGEL Stat Lab 12/17/20 07:15 Ordered UA W/MICROSCOPIC [URIN] Routine Lab 12/17/20 07:15 Ordered Oxytocin/Normal Saline [Pitocin in NS 20 Units/1,000 ML Med 12/17/20 07:25 Ordered ] 20 unit in 1,000 ml IV ONETIME Sodium Chloride 0.9% [Saline Flush] Med 06/14/21 07:22 Ordered 10 ml FLUSH ASDIRECTED PRN Saline Lock Insert [OM.PC] Routine Oth 12/17/20 07:22 Ordered Resuscitation Status Routine Resus Stat 12/17/20 07:22 Ordered Medication Orders Oxytocin/Sodium Chloride (Pitocin In Ns 20 Units/1,000 Ml) 20 unit in 1,000 mls @ 999 mls/hr IV ONETIME ONE; Protocol Stop: 12/17/20 08:25 Sodium Chloride (Sodium Chloride 0.9% 10 Ml Syringe) 10 ml FLUSH ASDIRECTED PRN PRN Reason: Keep Vein Open Assessment/Plan Comment:: 40 year old active labor Plan for vaginal delivery pain management per her request.
[2020-12-17] MEDS ORDERED: Benzocaine 20% Top Spray 56 GM Bottle TOP PRN (09:59)
[2020-12-17] MEDS ORDERED: Hydrocortisone 2.5% Crm 30 GM Tube TOP PRN (09:59)
[2020-12-17] MEDS ORDERED: Witch Hazel Medicated Pads 100/Jar TOP PRN (09:59)
[2020-12-17] MEDS ORDERED: Lanolin 100% Cream 40 GM Tube TOP PRN (09:59)
[2020-12-17] MEDS ORDERED: Ibuprofen 200 MG Tab, 24 Tab Bulk Bottle PO PRN (10:01)
[2020-12-17] MEDS ORDERED: Acetaminophen 325 MG Tab, 50 Tab Bulk Bottle PO PRN (10:01)
--- NOTE | 2020-12-17 10:12 | PCM.DEL ---
L & D Note - General Info Date of Service: 12/17/20 (labor) Mother's Due Date: 12/29/20 - Delivery Note Labor: Spontaneous Delivery Outcome: Livebirth Infant Delivery Mode: Spontaneous Presentation: Vertex Nuchal Cord: Present, Reduced Anesthesia Type: None, Nitrous Oxide Laceration: None Placenta: Intact, Spontaneous Cord: 3 Vessels Estimated Blood Loss: 0 Resuscitation Needed: No [place]: Bulb Syringe, Stimulated, Warmed, [place] Used, Warmer Used Provider: Angela Taylor Score 1 min: 8 (color) Score 5 min: 9 (color) Second Stage Interventions: Reports: Second Nurse Reviewed Heart Tones, Pushing Effectively, Pushing, McRobert's Position Delivery Comments (Free Text/Narrative):: This 40 year old G6 now P5 who is 38 2/7 weeks delivered a viable female over an intact perineum at 0937 in PAULINA position. THere was a nuchal cord which was reduced. The was placed on mother's chest. She was pink but not crying so the cord was clamped nad she was taken to the warmer where she was dried and simulated. She cried spontaneously and had had apgars of 8 and 9 all for color. The placenta was expressed spontaneously intact. Baby to breast within 30 minutes EBL zero Mother and baby to post in stable condition. weight 7-7 pounds first stage 5512-0978 second stage 9291-3228 Third stage 9317-9308 - General Info Date of Service: 12/17/20 Admission Dx/Problem (Free Text): Patient Status Order with Admit Dx/Problem 12/17/20 07:22 Patient Status [ADT] Routine Admission Diagnosis/Problem Admission Diagnosis/Problem Functional Status: Reports: Pain Controlled - Review of Systems General: Reports: No Symptoms HEENT: Reports: No Symptoms Pulmonary: Reports: No Symptoms Cardiovascular: Reports: No Symptoms Gastrointestinal: Reports: No Symptoms Genitourinary: Reports: No Symptoms Musculoskeletal: Reports: No Symptoms Skin: Reports: No Symptoms Neurological: Reports: No Symptoms Psychiatric: Reports: No Symptoms - Patient Data Vitals - Most Recent: Last Vital Signs Temp 97.1 F 12/17/20 07:48 Pulse 91 12/17/20 07:48 Resp 16 12/17/20 07:48 BP 120/79 12/17/20 07:48 Pulse Ox Weight - Most Recent: 201 lb Lab Results Last 24 Hours: Laboratory Results - last 24 hr 12/17/20 12/17/20 12/17/20 Range/Units 07:15 07:25 07:32 WBC 7.2 (4.5-11.0) K/uL RBC 4.71 (3.30-5.50) M/uL Hgb 13.7 D (12.0-15.0) g/dL Hct 41.0 (36.0-48.0) % MCV 87 (80-98) fL MCH 29 (27-31) pg MCHC 33 (32-36) % Plt Count 177 (150-400) K/uL Urine Color Yellow (YELLOW) Urine Appearance Clear (CLEAR) Urine pH 6.0 (5.0-8.0) Ur Specific [place] 1.025 (1.008-1.030) Urine Protein Negative (NEGATIVE) mg/dL Urine Glucose (UA) Negative (NEGATIVE) mg/dL Urine Ketones Negative (NEGATIVE) mg/dL Urine Occult Blood Negative (NEGATIVE) Urine Nitrite Negative (NEGATIVE) Urine Bilirubin Negative (NEGATIVE) Urine Urobilinogen 0.2 (0.2-1.0) EU/dL Ur Leukocyte Esterase Negative (NEGATIVE) Urine RBC 0-5 (0-5) Urine WBC 5-10 H (0-5) Ur Epithelial Cells Many Amorphous Sediment Not seen Urine Bacteria Few Urine Mucus Moderate Urine Opiates Screen (NEGATIVE) Ur Oxycodone Screen (NEGATIVE) Urine Methadone Screen (NEGATIVE) Ur Propoxyphene Screen (NEGATIVE) Ur Barbiturates Screen (NEGATIVE) Ur Tricyclics Screen (NEGATIVE) Ur Phencyclidine Scrn (NEGATIVE) Ur Amphetamine Screen (NEGATIVE) U Methamphetamines Scrn (NEGATIVE) Urine MDMA Screen (NEGATIVE) U Benzodiazepines Scrn (NEGATIVE) U Cocaine Metab Screen (NEGATIVE) U Marijuana (THC) Screen (NEGATIVE) SARS CoV-2 RNA Rapid ANGEL Negative 12/17/20 Range/Units 07:54 WBC (4.5-11.0) K/uL RBC (3.30-5.50) M/uL Hgb (12.0-15.0) g/dL Hct (36.0-48.0) % MCV (80-98) fL MCH (27-31) pg MCHC (32-36) % Plt Count (150-400) K/uL Urine Color (YELLOW) Urine Appearance (CLEAR) Urine pH (5.0-8.0) Ur Specific [place] (1.008-1.030) Urine Protein (NEGATIVE) mg/dL Urine Glucose (UA) (NEGATIVE) mg/dL Urine Ketones (NEGATIVE) mg/dL Urine Occult Blood (NEGATIVE) Urine Nitrite (NEGATIVE) Urine Bilirubin (NEGATIVE) Urine Urobilinogen (0.2-1.0) EU/dL Ur Leukocyte Esterase (NEGATIVE) Urine RBC (0-5) Urine WBC (0-5) Ur Epithelial Cells Amorphous Sediment Urine Bacteria Urine Mucus Urine Opiates Screen Negative (NEGATIVE) Ur Oxycodone Screen Negative (NEGATIVE) Urine Methadone Screen Negative (NEGATIVE) Ur Propoxyphene Screen Negative (NEGATIVE) Ur Barbiturates Screen Negative (NEGATIVE) Ur Tricyclics Screen Negative (NEGATIVE) Ur Phencyclidine Scrn Negative (NEGATIVE) Ur Amphetamine Screen Negative (NEGATIVE) U Methamphetamines Scrn Negative (NEGATIVE) Urine MDMA Screen Negative (NEGATIVE) U Benzodiazepines Scrn Negative (NEGATIVE) U Cocaine Metab Screen Negative (NEGATIVE) U Marijuana (THC) Screen Negative (NEGATIVE) SARS CoV-2 RNA Rapid ANGEL Med Orders - Current: Current Medications Acetaminophen (Acetaminophen 325 Mg Tab, 50 Tab Bulk Bottle) 325 - 650 mg PO Q4H PRN PRN Reason: Pain Benzocaine (Benzocaine 20% Top [place] 56 Gm Bottle) 0 gm TOP Q4H PRN PRN Reason: PERINEAL PAIN Emollient Ointment (Lanolin 100% Cream 40 Gm Tube) 1 gm TOP ASDIRECTED PRN PRN Reason: SORE NIPPLES Hydrocortisone (Hydrocortisone 2.5% Crm 30 Gm Tube) 0 gm TOP ASDIRECTED PRN PRN Reason: Itching Ibuprofen (Ibuprofen 200 Mg Tab, 24 Tab Bulk Bottle) 600 mg PO Q6H PRN PRN Reason: Pain Sodium Chloride (Sodium Chloride 0.9% 10 Ml Syringe) 10 ml FLUSH ASDIRECTED PRN PRN Reason: Keep Vein Open Witch Lucille (Witch Lucille Medicated Pads 100/Jar) 1 pad TOP ASDIRECTED ONE Stop: 12/17/20 10:00 Discontinued Medications Oxytocin/Sodium Chloride (Pitocin In Ns 20 Units/1,000 Ml) 20 unit in 1,000 mls @ 999 mls/hr IV ONETIME ONE; Protocol Stop: 12/17/20 08:25 - Exam General: Alert, Oriented HEENT: Pupils Equal Neck: Supple Lungs: Clear to Auscultation, Normal Respiratory Effort Cardiovascular: Regular Rate, Regular Rhythm (Female) Exam: Normal External Exam, Cervical Dilatation, Enlarged Uterus, Vaginal Bleeding Back Exam: Normal Inspection Extremities: No Pedal Edema, Normal Capillary Refill Skin: Warm, Dry, Intact Neurological: No New Focal Deficit Psy/Mental Status: Alert, Normal Affect, Normal Mood - Problem List & Annotations (1) Active labor at term SNOMED Code(s): 87986383 Code(s): MJF7005 - Status: Acute Current Visit: Yes (2) GDM, class A2 SNOMED Code(s): 37743164 Code(s): O24.419 - GESTATIONAL DIABETES MELLITUS IN , UNSP CONTROL Status: Acute Current Visit: Yes (3) Vaginal delivery SNOMED Code(s): 508820115 Code(s): O80 - ENCOUNTER FOR FULL-TERM UNCOMPLICATED DELIVERY Status: Acute Current Visit: Yes - Problem List Review Problem List Initiated/Reviewed/Updated: Yes - My Orders Last 24 Hours: My Active Orders 12/17/20 07:22 Communication Order [RC] ASDIRECTED Notify Provider Vital Signs [RC] PRN Notify Provider [RC] PRN Vital Signs [RC] PER UNIT ROUTINE Sodium Chloride 0.9% [Saline Flush] 10 ml FLUSH ASDIRECTED PRN Saline Lock Insert [OM.PC] Routine Resuscitation Status Routine 12/17/20 09:59 Patient Status [ADT] Routine Vital Signs [RC] PFP Benzocaine [[id number]-[id number] 20% [place]] See Dose Instructions TOP Q4H PRN Hydrocortisone [Proctozone-HC 2.5% Crm] 0 gm TOP ASDIRECTED PRN Lanolin [Lansinoh HPA] 1 gm TOP ASDIRECTED PRN witch Lucille [Tucks] 1 pad TOP ASDIRECTED ONE DVT/VTE Prophylaxis Reflex [OM.PC] Routine 12/17/20 10:00 Antiembolic Devices [RC] .Routine VTE/DVT Education [RC] Click to Edit 12/17/20 10:01 Acetaminophen [Tylenol Bulk Bottle] 325 - 650 mg PO Q4H PRN Ibuprofen [Motrin Bulk Bottle] 600 mg PO Q6H PRN 12/17/20 Lunch Regular Diet [DIET] 12/18/20 05:11 CBC W/O DIFF,HEMOGRAM [HEME] AM - Assessment Assessment:: 12/17/20 40 year old without complications female - Plan Plan:: 40 year old active labor Plan for vaginal delivery pain management per her request. 12/17/20 Routine cares support 24-48 hour stay CBC in am
--- NOTE | 2020-12-18 08:38 | PCM.PNPP ---
- General Info Date of Service: 12/18/20 Admission Dx/Problem (Free Text): Patient Status Order with Admit Dx/Problem 12/17/20 07:22 Patient Status [ADT] Routine Admission Diagnosis/Problem Admission Diagnosis/Problem Functional Status: Reports: Pain Controlled - Review of Systems General: Reports: No Symptoms HEENT: Reports: No Symptoms Pulmonary: Reports: No Symptoms Cardiovascular: Reports: No Symptoms Gastrointestinal: Reports: No Symptoms Genitourinary: Reports: No Symptoms Musculoskeletal: Reports: No Symptoms Skin: Reports: No Symptoms Neurological: Reports: No Symptoms Psychiatric: Reports: No Symptoms - Patient Data Vital Signs - Most Recent: Last Vital Signs Temp 96.5 F L 12/18/20 07:23 Pulse 76 12/18/20 07:23 Resp 16 12/18/20 07:23 BP 122/62 12/18/20 07:23 Pulse Ox 98 12/18/20 07:23 Weight - Most Recent: 201 lb I&O - Last 24 Hours: Intake & Output 12/17/20 12/18/20 12/18/20 22:59 06:59 14:59 Intake Total 2440 1000 480 Balance 2440 1000 480 Lab Results - Last 24 Hours: Laboratory Results - last 24 hr 12/18/20 Range/Units 04:10 WBC 9.6 (4.5-11.0) K/uL RBC 3.97 (3.30-5.50) M/uL Hgb 11.5 L D (12.0-15.0) g/dL Hct 35.0 L (36.0-48.0) % MCV 88 (80-98) fL MCH 29 (27-31) pg MCHC 33 (32-36) % Plt Count 161 (150-400) K/uL Med Orders - Current: Current Medications Acetaminophen (Acetaminophen 325 Mg Tab, 50 Tab Bulk Bottle) 325 - 650 mg PO Q4H PRN PRN Reason: Pain Last Admin: 12/17/20 11:18 Dose: 650 mg Documented by: Benzocaine (Benzocaine 20% Top [place] 56 Gm Bottle) 0 gm TOP Q4H PRN PRN Reason: PERINEAL PAIN Emollient Ointment (Lanolin 100% Cream 40 Gm Tube) 1 gm TOP ASDIRECTED PRN PRN Reason: SORE NIPPLES Hydrocortisone (Hydrocortisone 2.5% Crm 30 Gm Tube) 0 gm TOP ASDIRECTED PRN PRN Reason: Itching Ibuprofen (Ibuprofen 200 Mg Tab, 24 Tab Bulk Bottle) 600 mg PO Q6H PRN PRN Reason: Pain Last Admin: 12/17/20 11:18 Dose: 600 mg Documented by: Sodium Chloride (Sodium Chloride 0.9% 10 Ml Syringe) 10 ml FLUSH ASDIRECTED PRN PRN Reason: Keep Vein Open Witch Pepper (Witch Pepper Medicated Pads 100/Jar) 1 pad TOP ASDIRECTED PRN PRN Reason: PERINEAL PAIN Discontinued Medications Oxytocin/Sodium Chloride (Pitocin In Ns 20 Units/1,000 Ml) 20 unit in 1,000 mls @ 999 mls/hr IV ONETIME ONE; Protocol Stop: 12/17/20 08:25 Last Admin: 12/17/20 09:38 Dose: 999 mls/hr, 999 mls/hr Documented by: - Infant Interaction Disposition, : in Room with Family Infant Interaction: Holding Infant Feeding: Breastfed Infant; Nursed Well Support Person: - Recovery Exam Fundal Tone: Firm Fundal Level: 2 Fingerbreadths Below Umbilicus Fundal Placement: Midline Lochia Amount: Small Lochia Color: Rubra/Red Perineum Description: Intact, Minimal Bruising/Swelling Episiotomy/Laceration: None Bladder Status: Voiding Urinary Elimination: Voided - Exam General: Alert, Oriented HEENT: Pupils Equal Neck: Supple Lungs: Clear to Auscultation, Normal Respiratory Effort Cardiovascular: Regular Rate, Regular Rhythm GI/Abdominal Exam: Normal Bowel Sounds, Soft Extremities: No Pedal Edema, Normal Capillary Refill Skin: Warm Wound/Incisions: Healing Well Neurological: No New Focal Deficit Psy/Mental Status: Alert, Normal Affect, Normal Mood - Problem List & Annotations (1) Active labor at term SNOMED Code(s): 81666901 Code(s): UYG4004 - Status: Acute Current Visit: Yes (2) GDM, class A2 SNOMED Code(s): 14015674 Code(s): O24.419 - GESTATIONAL DIABETES MELLITUS IN , UNSP CONTROL Status: Acute Current Visit: Yes (3) Vaginal delivery SNOMED Code(s): 676672344 Code(s): O80 - ENCOUNTER FOR FULL-TERM UNCOMPLICATED DELIVERY Status: Acute Current Visit: Yes - Problem List Review Problem List Initiated/Reviewed/Updated: Yes - My Orders Last 24 Hours: My Active Orders 12/17/20 09:59 Patient Status [ADT] Routine Vital Signs [RC] PFP Benzocaine [Uhhn-N-Kjmvvwg 20% [place]] See Dose Instructions TOP Q4H PRN Hydrocortisone [Proctozone-HC 2.5% Crm] 0 gm TOP ASDIRECTED PRN Lanolin [Lansinoh HPA] 1 gm TOP ASDIRECTED PRN witch Pepper [Tucks] 1 pad TOP ASDIRECTED PRN DVT/VTE Prophylaxis Reflex [OM.PC] Routine 12/17/20 10:00 Antiembolic Devices [RC] .Routine VTE/DVT Education [RC] Click to Edit 12/17/20 10:01 Acetaminophen [Tylenol Bulk Bottle] 325 - 650 mg PO Q4H PRN Ibuprofen [Motrin Bulk Bottle] 600 mg PO Q6H PRN 12/17/20 Lunch Regular Diet [DIET] - Assessment Assessment:: 12/17/20 40 year old without complications female 12/18/20 Happy, feels good flow light, voiding not much cramping HGb 11.5 great want to stay until tomorrow - Plan Plan:: 40 year old active labor Plan for vaginal delivery pain management per her request. 12/17/20 Routine cares support 24-48 hour stay CBC in am 12/18/20 Stable home tomorrow see me in 6-8 weeks
[2020-12-19 06:29] VITALS: BP 123/59; PULSE 64
--- NOTE | 2020-12-19 08:23 | PCM.PNPP ---
- General Info Date of Service: 12/19/20 Functional Status: Reports: Pain Controlled - Review of Systems General: Reports: No Symptoms HEENT: Reports: No Symptoms Pulmonary: Reports: No Symptoms Cardiovascular: Reports: No Symptoms Gastrointestinal: Reports: No Symptoms Genitourinary: Reports: No Symptoms Musculoskeletal: Reports: No Symptoms Skin: Reports: No Symptoms Neurological: Reports: No Symptoms Psychiatric: Reports: No Symptoms - General Info Date of Service: 12/19/20 - Patient Data Vital Signs - Most Recent: Last Vital Signs Temp 35.8 C L 12/19/20 06:29 Pulse 64 12/19/20 06:29 Resp 16 12/19/20 06:29 BP 123/59 L 12/19/20 06:29 Pulse Ox 98 12/19/20 06:29 Weight - Most Recent: 91.172 kg I&O - Last 24 Hours: Intake & Output 12/18/20 12/19/20 12/19/20 22:59 06:59 14:59 Intake Total 1000 1000 Balance 1000 1000 Med Orders - Current: Current Medications Acetaminophen (Acetaminophen 325 Mg Tab, 50 Tab Bulk Bottle) 325 - 650 mg PO Q4H PRN PRN Reason: Pain Last Admin: 12/17/20 11:18 Dose: 650 mg Documented by: Benzocaine (Benzocaine 20% Top [place] 56 Gm Bottle) 0 gm TOP Q4H PRN PRN Reason: PERINEAL PAIN Emollient Ointment (Lanolin 100% Cream 40 Gm Tube) 1 gm TOP ASDIRECTED PRN PRN Reason: SORE NIPPLES Hydrocortisone (Hydrocortisone 2.5% Crm 30 Gm Tube) 0 gm TOP ASDIRECTED PRN PRN Reason: Itching Ibuprofen (Ibuprofen 200 Mg Tab, 24 Tab Bulk Bottle) 600 mg PO Q6H PRN PRN Reason: Pain Last Admin: 12/17/20 11:18 Dose: 600 mg Documented by: Sodium Chloride (Sodium Chloride 0.9% 10 Ml Syringe) 10 ml FLUSH ASDIRECTED PRN PRN Reason: Keep Vein Open Witch [place]ille (Witch Lucille Medicated Pads 100/Jar) 1 pad TOP ASDIRECTED PRN PRN Reason: PERINEAL PAIN Discontinued Medications Oxytocin/Sodium Chloride (Pitocin In Ns 20 Units/1,000 Ml) 20 unit in 1,000 mls @ 999 mls/hr IV ONETIME ONE; Protocol Stop: 12/17/20 08:25 Last Admin: 12/17/20 09:38 Dose: 999 mls/hr, 999 mls/hr Documented by: - Interaction Disposition, : Felt in Room with Family Interaction: Holding Infant Feeding: Breastfed ; Nursed Well Support Person: - Recovery Exam Fundal Tone: Firm Fundal Level: 2 Fingerbreadths Below Umbilicus Fundal Placement: Midline Lochia Amount: Small Lochia Color: Rubra/Red Perineum Description: Intact, Minimal Bruising/Swelling Episiotomy/Laceration: None Bladder Status: Voiding Urinary Elimination: Voided - Exam General: Alert, Oriented, Cooperative HEENT: Pupils Equal, Pupils Reactive, EOMI, Mucous Membr. Moist/[place] Neck: Supple Lungs: Clear to Auscultation, Normal Respiratory Effort Cardiovascular: Regular Rate, Regular Rhythm GI/Abdominal Exam: Normal Bowel Sounds, Soft, Non-Tender, No Organomegaly, No Distention, No Abnormal Bruit, No Mass, Pelvis Stable Extremities: Normal Inspection, Normal Range of Motion, Non-Tender, No Pedal Edema, Normal Capillary Refill Skin: Warm, Dry, Intact Neurological: No New Focal Deficit Psy/Mental Status: Alert, Normal Affect, Normal Mood - Problem List & Annotations (1) Vaginal delivery SNOMED Code(s): 492698291 Code(s): O80 - ENCOUNTER FOR FULL-TERM UNCOMPLICATED DELIVERY Status: Acute Current Visit: Yes (2) Gestational diabetes SNOMED Code(s): 39074524 Code(s): O24.419 - GESTATIONAL DIABETES MELLITUS IN , UNSP CONTROL Status: Chronic Current Visit: No (3) History of depression SNOMED Code(s): 014102758 Code(s): Z87.59 - PERSONAL HISTORY OF COMP OF PREG, CHLDBRTH AND THE PUERP; Z86.59 - PERSONAL HISTORY OF OTHER MENTAL AND BEHAVIORAL DISORDERS Status: Chronic Current Visit: No - Problem List Review Problem List Initiated/Reviewed/Updated: Yes - Assessment Assessment:: 12/17/20 40 year old without complications female 12/18/20 Happy, feels good flow light, voiding not much cramping HGb 11.5 great want to stay until tomorrow 12/19/2020 day two good and supplementing Fundus firm and bleeding decreasing Desires discharge home today - Plan Plan:: 40 year old active labor Plan for vaginal delivery pain management per her request. 12/17/20 Routine cares support 24-48 hour stay CBC in am 12/18/20 Stable home tomorrow see me in 6-8 weeks 12/19/2020 Continue routine cares Continue to support Discharge home today
== END 2020-12-19 10:48 | disposition home or self-care (01) | DRG 560 ==
LOC: JP.OBCHECK 07:01 → JP.OB 07:09 → OBSVTOIN 09:37 → JP.OB 09:37 → JP.MS 13:07
PROVIDERS: ADMIT Nurse Practitioner Family; ATTEND Nurse Practitioner Family
PROC: 10E0XZZ Delivery of Products of Conception, External Approach (ICD-10-PCS; principal; 2020-12-17)
DX: O24.429 Gestational diabetes mellitus in childbirth, unspecified control (principal); Z37.0 Single live birth; O69.81X0 Labor and delivery complicated by cord around neck, without compression, not applicable or unspecified; Z3A.38 38 weeks gestation of pregnancy; Z20.822 Contact with and (suspected) exposure to COVID-19; Z87.59 Personal history of other complications of pregnancy, childbirth and the puerperium; Z86.59 Personal history of other mental and behavioral disorders
CPT/HCPCS: 36415; 80305-QW; 81001; 85027; A9270-GY; J2590; U0002